=== PATIENT | male | born 1965 | race Caucasian/White ===

== ENCOUNTER 2020-04-19 20:06 | Emergency (ER) | payer OTHER, SELFPAY ==
[2020-04-19 20:12] VITALS: BP 159/84; PULSE 108; RESP 14; TEMP 37.1; O2SAT 97; BMI 31.2
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
[2020-04-19] MEDS: HYDROcodone-acetaminophen 7.5-325 mg Tablet 1 TAB PO ×2 (21:45→22:55)
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
--- NOTE | 2020-04-19 22:17 | PC.NURSE ---
pt has noticable on wrist. PMS present, ROM normal, warm to touch
[2020-04-19 22:51] VITALS: BP 150/79; PULSE 99; RESP 18; O2SAT 97
--- NOTE | 2020-04-19 22:57 | PC.NURSE ---
reviewed assessment and agree
== END 2020-04-19 22:58 | disposition home or self-care (01) ==
PROVIDERS: Emergency Provider Physician Assistant
DX: S22.42XA Multiple fractures of ribs, left side, initial encounter for closed fracture (principal); V86.99XA Unspecified occupant of other special all-terrain or other off-road motor vehicle injured in nontraffic accident, initial encounter
CPT/HCPCS: 12345; 71101; 99281; 99283